=== PATIENT | female | born 1930 | race Caucasian/White ===

== ENCOUNTER 2017-02-18 22:55 | Emergency (ER) | payer MEDICARE ==
--- NOTE | ~2017-02-18 | EKG ---
PATIENT: POOJA TINOCO UNIT #: [id number] Ventricular Rate: 78 BPM Atrial Rate: 78 BPM P-R Interval: 218 ms QRS Duration: 92 ms Q-T Interval: 400 ms QTC Calculation(Bezet): 456 ms P Brimhall: 66 degrees Calculated R Brimhall: 18 degrees Calculated T Brimhall: 57 degrees Diagnosis Line: Sinus rhythm with 1st degree A-V block Diagnosis Line: Anterior infarct (cited on or before 18-FEB-2017) Diagnosis Line: Abnormal ECG Diagnosis Line: When compared with ECG of 29-OCT-2012 19:15, Diagnosis Line: No significant change was found Diagnosis Line: Confirmed by GRIFFIN CARLOS MD ([id number]) on 02/19/2017 Diagnosis Line: 11:12:44 PM INTERPRETING MD: TERRANCE MINER
--- NOTE | ~2017-02-18 | CR72 ---
[facility] A Service [facility] RADIOLOGY TEXT RESULTS PATIENT: POOJA TINOCO LOCATION: SED : [birth year] UNIT #: [id number] AGE: [address]: Monster Trent MD SEX: F ORDER DR: [id number] [place] [id number] E MR#: [id number] Acc #: [id number] NAME: POOJA TINOCO : 1930 SEX: F STUDY DATE/TIME: 02/18/2017 22:59 UNIT: SED ROOM: STUDY DESCRIPTION: CR Chest Single View Portable Attending Physician: Monster Trent M.D. Ordering Physician: Monster Trent M.D. Primary Care Physician: Manas Cordero M.D. MEDICAL IMAGING REPORT This report is preliminary unless electronic signature is present. EXAM Frontal chest, 02/18/2017. INDICATION Chest pain beginning in the left arm extending into the chest and then down the right arm intermittently for the last 10-12 days. TECHNIQUE Frontal chest compared with 02/19/2015. FINDINGS Cardiac silhouette is within normal limits. The lungs are mildly hyperinflated. Vascularity unremarkable. There is old healed granulomatous disease and probable fibrosis and scarring in the lung bases. Calcified mitral valve noted. No pneumothorax. IMPRESSION Chronic-appearing lung changes and mild pulmonary hyperinflation suspected. No definite superimposed active disease or significant change. Dictated by... Eladio Benítez M.D. THIS IS AN ELECTRONICALLY VERIFIED REPORT Eladio Benítez M.D. at 02/19/2017 10:02 PM ARMAND/doug TD: 02/19/2017 10:15 JOB #: [id number] [facility] A Service [facility] RADIOLOGY TEXT RESULTS PATIENT: POOJA TINOCO LOCATION: SED : [birth year] UNIT #: [id number] AGE: [address]: Monster Trent MD SEX: F ORDER DR: MEDICAL IMAGING REPORT Page 1 of 1
[~2017-02-18 22:55] MED LIST: ALDACTONE PO; ALLEGRA PO; ASPIRINEC PO; BENADRYL PO; CELEXA PO; COZAAR PO; ESTRADIOL TOP; FAMOTIDINE PO; FLEXERIL PO; GLUCOSAMINE; HYDROCODON-ACE1 EACH PO; HYDROXYCHLOROQUINE PO; IBUPROFEN PO; LIBRAX CAPSULE1 CA1 PO; LOPRESSOR PO; MOBIC PO; NEURONTIN PO; NORVASC PO; PLAVIX PO; PRILOSEC PO; SINGULAIR PO; XARELTO10 MG; ZITHROMAX PO; ZOFRAN ODT4 MG PO
[2017-02-18 23:09] LABS: BASOPHIL# 0.1 X10e3 (0-0.3); DIFF IND NO; EOSINOPHIL# 0.3 X10e3 (0-0.7); EOSINOPHIL% 3.8 % (0.0-7.0); HEMATOCRIT 35.1 % (35.0-45.0); HEMOGLOBIN 10.8 gm/dL (12.0-16.0); LYMPHOCYTE# 2.1 X10e3 (1.0-3.5); LYMPHOCYTE% 29.7 % (17.0-45.0); MEAN CELL VOLUME 77.7 FL (83-96); MEAN CORPUSCULAR HEMOGLOBIN 23.9 PG (28-34); MEAN CORPUSCULAR HGB CONC 30.8 g/dL (30-36); MEAN PLATELET VOLUME 7.4 FL (6.5-11.5); MONOCYTE# 0.5 X10e3 (0-1.0); NEUTROPHIL# 4.2 X10e3 (1.5-7.1); NEUTROPHIL% 58.5 % (40-75); PLATELET COUNT 322 X10e3 (140-420); RED BLOOD COUNT 4.51 X10e (3.90-5.30); RED CELL DISTRIBUTION WIDTH 16.9 % (11.0-15.5); WHITE BLOOD COUNT 7.1 X10e3 (4.0-10.5)
[2017-02-18 23:24] LABS: INR 2.5; PROTHROMBIN TIME (PATIENT) 28.6 SECONDS (9.5-12.4)
[2017-02-18 23:26] LABS: POC - CKMB 4.5 ng/mL (0.0-7.9)
[2017-02-18 23:27] LABS: POC - TROPONIN <0.05 ng/mL (<=0.05)
[2017-02-18 23:31] LABS: PARTIAL THROMBOPLASTIN TIME 44.6 SECONDS (25.6-38.1)
[2017-02-18 23:33] LABS: ALBUMIN SERUM 4.5 g/dL (3.5-5.0); ALKALINE PHOSPHATASE 65 U/L (32-92); ALT (SGPT) 18 U/L (10-40); AST (SGOT) 22 U/L (10-42); BILIRUBIN,TOTAL 0.2 mg/dL (0.2-2.0); BLOOD UREA NITROGEN 23 mg/dL (9-23); CALCIUM SERUM 9.3 mg/dL (8.4-10.2); CARBON DIOXIDE 25 mmol/L (22-31); CHLORIDE 99 mmol/L (100-111); GLOM FILT RATE Estimated 50.6 mL/min (>60); GLUCOSE FASTING 114 mg/dL (70-110); POTASSIUM 3.5 mmol/L (3.5-5.1); PROTEIN TOTAL SERUM 7.8 g/dL (6.0-8.3); SODIUM 134 mmol/L (135-145)
[2017-02-18 23:34] LABS: BILIRUBIN, DIRECT <0.1 mg/dL (0.0-0.2); BILIRUBIN,INDIRECT 0.1 mg/dL (0.0-0.9)
[2017-02-19 01:20] LABS: POC - CKMB 3.3 ng/mL (0.0-7.9)
[2017-02-19 01:21] LABS: POC - TROPONIN <0.05 ng/mL (<=0.05)
== END 2017-02-19 01:29 | disposition home or self-care (01) ==
LOC: SED 22:55
PROVIDERS: Emergency Medicine
DX: R07.9 Chest pain, unspecified (principal); I48.91 Unspecified atrial fibrillation; K21.9 Gastro-esophageal reflux disease without esophagitis; Z88.0 Allergy status to penicillin; Z79.899 Other long term (current) drug therapy; Z88.7 Allergy status to serum and vaccine
CPT/HCPCS: 36415; 71010; 80048; 80076; 82553; 83874; 84484; 85025; 85610; 85730; 93005; 99284

== ENCOUNTER 2017-03-25 15:54 | Emergency (ER) | payer MEDICARE, BC ==
[2017-03-25 16:38] LABS: BASOPHIL# 0.1 X10e3 (0-0.3); BASOPHIL% 0.8 % (0-2.5); EOSINOPHIL# 0.2 X10e3 (0-0.7); EOSINOPHIL% 3.3 % (0.0-7.0); HEMATOCRIT 34.5 % (35.0-45.0); HEMOGLOBIN 10.9 gm/dL (12.0-16.0); LYMPHOCYTE# 1.7 X10e3 (1.0-3.5); LYMPHOCYTE% 26.9 % (17.0-45.0); MEAN CELL VOLUME 77.3 FL (83-96); MEAN CORPUSCULAR HEMOGLOBIN 24.4 PG (28-34); MEAN CORPUSCULAR HGB CONC 31.6 g/dL (30-36); MEAN PLATELET VOLUME 7.7 FL (6.5-11.5); MONOCYTE# 0.4 X10e3 (0-1.0); MONOCYTE% 6.7 % (3.0-12.0); NEUTROPHIL# 3.9 X10e3 (1.5-7.1); NEUTROPHIL% 62.3 % (40-75); PLATELET COUNT 295 X10e3 (140-420); RED BLOOD COUNT 4.47 X10e (3.90-5.30); WHITE BLOOD COUNT 6.3 X10e3 (4.0-10.5)
[2017-03-25 16:45] LABS: DIFF IND NO
[2017-03-25 16:47] LABS: INR 1.4; PROTHROMBIN TIME (PATIENT) 15.3 SECONDS (9.5-12.4)
[2017-03-25 16:54] LABS: PARTIAL THROMBOPLASTIN TIME 32.8 SECONDS (25.6-38.1)
[2017-03-25 16:55] LABS: ALBUMIN SERUM 4.4 g/dL (3.5-5.0); ALKALINE PHOSPHATASE 65 U/L (32-92); ALT (SGPT) 18 U/L (10-40); AST (SGOT) 24 U/L (10-42); BILIRUBIN,TOTAL 0.4 mg/dL (0.2-2.0); BLOOD UREA NITROGEN 25 mg/dL (9-23); CALCIUM SERUM 9.2 mg/dL (8.4-10.2); CARBON DIOXIDE 26 mmol/L (22-31); CHLORIDE 104 mmol/L (100-111); GLOM FILT RATE Estimated 50.3 mL/min (>60); GLUCOSE FASTING 144 mg/dL (70-110); POTASSIUM 3.7 mmol/L (3.5-5.1); PROTEIN TOTAL SERUM 7.6 g/dL (6.0-8.3); SODIUM 137 mmol/L (135-145)
[2017-03-25 17:07] LABS: BILIRUBIN, DIRECT <0.1 mg/dL (0.0-0.2); BILIRUBIN,INDIRECT 0.3 mg/dL (0.0-0.9)
== END 2017-03-25 18:00 | disposition home or self-care (01) ==
LOC: SED 15:54
PROVIDERS: Emergency Medicine
DX: K64.4 Residual hemorrhoidal skin tags (principal); D64.9 Anemia, unspecified; I48.91 Unspecified atrial fibrillation; Z88.0 Allergy status to penicillin; Z88.7 Allergy status to serum and vaccine
CPT/HCPCS: 36415; 80048; 80076; 82270; 85025; 85610; 85730; 96374; 99284; C9113

== ENCOUNTER 2017-06-17 15:20 | Emergency (ER) | payer MEDICARE, BC ==
[~2017-06-17] VITALS: Ht 160 cm; Wt 59.0 kg
--- NOTE | ~2017-06-17 | CR170 ---
[facility]. [facility] A Service [facility] RADIOLOGY TEXT RESULTS PATIENT: POOJA TINOCO LOCATION: SED : [birth year] UNIT #: [id number] AGE: [address]: Miya Barr PAC SEX: F ORDER DR: [id number] [place] [id number] E MR#: [id number] Acc #: [id number] NAME: POOJA TINOCO : 1930 SEX: F STUDY DATE/TIME: 06/17/2017 16:25 UNIT: SED ROOM: STUDY DESCRIPTION: CR Knee 2 Views Rt Attending Physician: Miya Barr Pa-C Ordering Physician: Miya Barr Pa-C Primary Care Physician: Manas Cordero M.D. MEDICAL IMAGING REPORT This report is preliminary unless electronic signature is present. EXAM Two-view right knee HISTORY Chronic knee pain and swelling. Woke up this morning with pain and swelling in knee, had injection 1 month ago. FINDINGS 2 views of the right knee demonstrates moderately advanced medial compartment arthrosis with medial joint space narrowing. Small knee effusion. Mild patellofemoral arthrosis. Relative sparing of the lateral compartment. No fracture. 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 Small joint effusion. Dictated by... Get Chávez M.D. THIS IS AN ELECTRONICALLY VERIFIED REPORT Get Chávez M.D. at 06/18/2017 7:15 AM DEBBIE/korin TD: 06/18/2017 04:58 JOB #: [id number] [facility] A Service [facility] RADIOLOGY TEXT RESULTS PATIENT: POOJA TINOCO LOCATION: SED : [birth year] UNIT #: [id number] AGE: [address]: Miya Barr PAC SEX: F ORDER DR: MEDICAL IMAGING REPORT Page 1 of 1
[2017-06-17] MEDS ORDERED: AMLODIPINE BESYL5 MG (15:43)
[2017-06-17] MEDS ORDERED: OMEPRAZOLE20 M1 (15:43)
[2017-06-17] MEDS ORDERED: GABAPENTIN300 MG (15:43)
[2017-06-17] MEDS ORDERED: CELEXA20 M1 (15:43)
[2017-06-17] MEDS ORDERED: SPIRONOLACTONE50 MG (15:43)
[2017-06-17] MEDS ORDERED: ATENOLOL50 MG PO (15:43)
[2017-06-17] MEDS ORDERED: IMDUR-ER30 M1 (15:43)
[2017-06-17] MEDS ORDERED: MONTELUKAST SOD10 MG (15:44)
[2017-06-17] MEDS ORDERED: SINGULAIR (15:44)
[2017-06-17] MEDS ORDERED: ALORA1 EAC1 (15:44)
[2017-06-17] MEDS ORDERED: XARELTO20 MG (15:44)
[2017-06-17] MEDS ORDERED: VITAMIN D-32000 UNIT (15:44)
[2017-06-17] MEDS ORDERED: LOSARTAN POTASS50 MG (15:44)
[2017-06-17] MEDS ORDERED: ALLEGRA (15:45)
[2017-06-17] MEDS ORDERED: LOMOTIL WHITE2.5 M1 (15:45)
[2017-06-17] MEDS ORDERED: FLEXERIL10 MG (15:45)
[2017-06-17] MEDS ORDERED: PROAIR HFA8.5 GM (15:45)
[2017-06-17] MEDS ORDERED: ALPRAZOLAM0.5 M1 (15:45)
[2017-06-17] MEDS ORDERED: LORCET 5-325 M1 EACH (15:46)
== END 2017-06-17 17:44 | disposition home or self-care (01) ==
LOC: SED 15:20
DX: M17.11 Unilateral primary osteoarthritis, right knee (principal); Z90.710 Acquired absence of both cervix and uterus; Z90.49 Acquired absence of other specified parts of digestive tract; Z88.0 Allergy status to penicillin; Z88.7 Allergy status to serum and vaccine; Z79.899 Other long term (current) drug therapy
CPT/HCPCS: 73560; 99283

== ENCOUNTER 2017-08-06 18:50 | Emergency (ER) | payer MEDICARE, BC ==
[~2017-08-06] VITALS: Ht 160 cm; Wt 55.8 kg
--- NOTE | ~2017-08-06 | CT2 ---
[facility]. [facility] A Service of [facility] RADIOLOGY TEXT RESULTS PATIENT: POOJA TINOCO LOCATION: SED : [birth year] UNIT #: [id number] AGE: [address]: Farzana Diez MD SEX: F ORDER DR: [id number] [place] [id number] E MR#: [id number] Acc #: [id number] NAME: POOJA TINOCO : 1930 SEX: F STUDY DATE/TIME: 08/06/2017 21:19 UNIT: SED ROOM: STUDY DESCRIPTION: CT Abd and Pelv W Cont Attending Physician: Farzana Diez M.D. Ordering Physician: Farzana Diez M.D. Primary Care Physician: Laura Schafer M.D. MEDICAL IMAGING REPORT This report is preliminary unless electronic signature is present. EXAM Abdomen and pelvis CT, 08/06, at 21:19. INDICATIONS Abdominal cramping with nausea and vomiting, which is chronic but increasing recently. TECHNIQUE Axial images were obtained through the abdomen and pelvis following oral and IV contrast administration. Multiplanar reformats were obtained. This CT exam was performed with one or more of the following radiation dose reduction techniques: automatic exposure control, adjustment of mA and/or kV according to patient size, and iterative reconstruction. COMPARISON No comparison. FINDINGS ABDOMEN: Mitral annulus calcifications are present. There is some dependent atelectasis in both lung bases, and there are granulomatous calcifications in the right lower lobe. There is atherosclerotic disease, but there is no aortic aneurysm. Gallbladder unremarkable. Mild fatty infiltration of the liver is present. Solid organs are otherwise normal. GI tract is normal. There is lumbar levoscoliosis. Patient is status post L3 through L5 spinal fusion with pedicle screws. There is streak artifact from the hardware. PELVIS: Urinary bladder is normal. The uterus and appendix are surgically absent. There is lower colonic diverticulosis, but no focal diverticulitis is seen. Distal small bowel is normal. No free fluid. IMPRESSION 1. No acute findings in the abdomen or pelvis. [facility] A Service of [facility] RADIOLOGY TEXT RESULTS PATIENT: POOJA TINOCO LOCATION: SED : [birth year] UNIT #: [id number] AGE: [address]: Farzana Diez MD SEX: F ORDER DR: 2. Appendectomy, hysterectomy, and spinal fusion. 3. Hepatic steatosis. 4. Mild colonic diverticulosis without evidence of diverticulitis. The GI tract is otherwise normal. 5. Atherosclerotic disease. Dictated by... Haresh Saldivar Jr., M.D. THIS IS AN ELECTRONICALLY VERIFIED REPORT Haresh Saldivar Jr., M.D. at 08/07/2017 9:14 PM JESUS/minerva TD: 08/07/2017 13:55 JOB #: [id number] MEDICAL IMAGING REPORT Page 1 of 1
[~2017-08-06 18:50] MED LIST changes: +ALLEGRA; +ALORA1 EAC1; +ALPRAZOLAM0.5 M1; +AMLODIPINE BESYL5 MG; +ATENOLOL50 MG PO; +CELEXA20 M1; +FLEXERIL10 MG; +GABAPENTIN300 MG; +IMDUR-ER30 M1; +LOMOTIL WHITE2.5 M1; +LORCET 5-325 M1 EACH; +LOSARTAN POTASS50 MG; +MONTELUKAST SOD10 MG; +OMEPRAZOLE20 M1; +PROAIR HFA8.5 GM; +SINGULAIR; +SPIRONOLACTONE50 MG; +VITAMIN D-32000 UNIT; +XARELTO20 MG
[2017-08-06 19:57] LABS: URINE SOURCE CLEAN CATCH
[2017-08-06 19:59] LABS: URINE APPEARANCE CLEAR; URINE BILIRUBIN NEG (NEG); URINE BLOOD NEG (NEG); URINE COLOR YELLOW; URINE GLUCOSE NEG (NORM); URINE KETONE NEG (NEG); URINE LEUKOCYTE ESTERASE TRACE (NEG); URINE NITRATE NEG (NEG); URINE PH 5.5 (5-8); URINE PROTEIN NEG (NEG); URINE UROBILINOGEN 0.2 MG/DL (NORM)
[2017-08-06 20:00] LABS: BASOPHIL% 0.6 % (0-2.5); EOSINOPHIL# 0.2 X10e3 (0-0.7); EOSINOPHIL% 3.7 % (0.0-7.0); HEMOGLOBIN 14.2 gm/dL (12.0-16.0); LYMPHOCYTE# 0.9 X10e3 (1.0-3.5); MEAN CELL VOLUME 89.7 FL (83-96); MEAN CORPUSCULAR HEMOGLOBIN 30.2 PG (28-34); MEAN CORPUSCULAR HGB CONC 33.7 g/dL (30-36); MEAN PLATELET VOLUME 7.6 FL (6.5-11.5); MICRO INDICATED? YES; MONOCYTE# 0.4 X10e3 (0-1.0); MONOCYTE% 7.5 % (3.0-12.0); NEUTROPHIL# 4.2 X10e3 (1.5-7.1); NEUTROPHIL% 73.2 % (40-75); PLATELET COUNT 222 X10e3 (140-420); RED BLOOD COUNT 4.68 X10e (3.90-5.30); RED CELL DISTRIBUTION WIDTH 14.7 % (11.0-15.5); WHITE BLOOD COUNT 5.7 X10e3 (4.0-10.5)
[2017-08-06 20:02] LABS: DIFF IND NO
[2017-08-06 20:08] LABS: CULTURE INDICATED? NO; URINE BACTERIA NEG (NEG); URINE RBC NEG /[HPF] (0-2); URINE SQUAMOUS EPITHELIAL CELL OCCAS /[HPF]; URINE WBC 0-2 /[HPF] (0-5)
[2017-08-06 20:17] LABS: ALBUMIN SERUM 4.8 g/dL (3.5-5.0); ALKALINE PHOSPHATASE 76 U/L (32-92); ALT (SGPT) 30 U/L (10-40); AMYLASE 38 U/L (0-46); AST (SGOT) 23 U/L (10-42); BILIRUBIN,TOTAL 0.4 mg/dL (0.2-2.0); BLOOD UREA NITROGEN 23 mg/dL (9-23); BUN/CREATININE RATIO 28.75; CALCIUM SERUM 9.3 mg/dL (8.4-10.2); CARBON DIOXIDE 26 mmol/L (22-31); CHLORIDE 99 mmol/L (100-111); CREATININE SERUM 0.8 mg/dL (0.6-1.4); GLOM FILT RATE Estimated 65.9 mL/min (>60); GLUCOSE FASTING 94 mg/dL (70-110); LIPASE 27 U/L (22-51); POTASSIUM 3.9 mmol/L (3.5-5.1); PROTEIN TOTAL SERUM 7.8 g/dL (6.0-8.3); SODIUM 131 mmol/L (135-145)
[2017-08-06 20:19] LABS: BILIRUBIN, DIRECT <0.1 mg/dL (0.0-0.2); BILIRUBIN,INDIRECT 0.3 mg/dL (0.0-0.9)
== END 2017-08-06 23:52 | disposition home or self-care (01) ==
LOC: SED 18:50
PROVIDERS: Student in an Organized Health Care Education/Training Program
DX: R10.9 Unspecified abdominal pain (principal); R19.7 Diarrhea, unspecified; I10 Essential (primary) hypertension; Z86.73 Personal history of transient ischemic attack (TIA), and cerebral infarction without residual deficits; Z90.49 Acquired absence of other specified parts of digestive tract
CPT/HCPCS: 36415; 74177; 80048; 80076; 81003; 82150; 83690; 85025; 96361; 96374; 96375; 99284; C9113; J2405; Q9967